=== PATIENT | female | born 1990 | race Two or more races ===

== ENCOUNTER 2021-11-21 09:14 | Emergency (ER) | payer OTHER ==
[~2021-11-21] VITALS: Ht 167.6 cm; Wt 98.0 kg
== END 2021-11-21 15:31 | disposition home or self-care (01) ==
LOC: ER 09:14
DX: O20.9 Hemorrhage in early pregnancy, unspecified (principal); Z3A.09 9 weeks gestation of pregnancy; E11.9 Type 2 diabetes mellitus without complications; Z79.84 Long term (current) use of oral hypoglycemic drugs